=== PATIENT | male | born 1995 | race Caucasian/White ===

== ENCOUNTER 2018-03-16 15:11 | Emergency (ER) | payer BC ==
[2018-03-16] MEDS ORDERED: Fluorescein 0.6 MG Ophth Strip EYELF ONE (15:49)
[2018-03-16] MEDS ORDERED: Fluorescein 0.6 MG Ophth Strip ONE (15:50)
[2018-03-16] MEDS ORDERED: Diphtheria,Pertussis(Acell),Tetanus Vaccine 0.5 ML SDV IM ONE (15:57)
--- NOTE | 2018-03-16 16:03 | EDM.PDOC ---
ED HPI GENERAL MEDICAL PROBLEM - General Chief Complaint: Eye Problems Stated Complaint: EYE INJURY Time Seen by Provider: 03/16/18 15:37 Source of Information: Reports: Patient, Family History Limitations: Reports: No Limitations - History of Present Illness INITIAL COMMENTS - FREE TEXT/NARRATIVE: 22-year-old male presents for evaluation amd treatment of injury to the left eye. Injury occurred prior to arrival in the ER. Patient was running to catch a softball when he ran into a chain linked fence. He is complaining of pain and a laceration to the left eye, superior lid. He has also appreciated swelling. Reports no foreign body sensation. No vision changes. Did not pass out. No treatment prior to arrival in the ER. Unsure of last tetanus. Onset: Today - Related Data Allergies Allergy/AdvReac Type Severity Reaction Status Date / Time No Known Allergies Allergy Verified 03/16/18 15:26 Home Meds: Home Meds Erythromycin Base [Erythromycin 0.5% Ophth Oint] 1 applic OP Q8HR #1 tube [Rx] Past Medical History Neurological History: Reports: Concussion Social & Family History - Tobacco Use Smoking Status *Q: Never Smoker Second Hand Smoke Exposure: No - Caffeine Use Caffeine Use: Reports: Coffee - Recreational Drug Use Recreational Drug Use: No ED ROS GENERAL - Review of Systems Review Of Systems: See Below HEENT: Denies: Eye Pain, Glasses, Vision Change Neurological: Denies: Syncope ED EXAM GENERAL W FULL EYE - Physical Exam Exam: See Below Exam Limited By: No Limitations General Appearance: Alert, WD/WN, No Apparent Distress Eye Exam: Left Eye: Periorbital Changes (swelling to the upper and lower lids; 2 lacerations to the left upper lid more medial laceration is approximately 1.5cm in length, linear, well approximated subcutaneous; second laceration is approximately 0.75cm in length, flap shapped, superficial), Bilateral Eye: EOMI , Normal Inspection, PERRL Eyelids: Right: Normal Appearance, Left: Edema, Ecchymosis Conjunctiva & Sclera: Bilateral: Normal Appearance Cornea Exam: Left: Corneal Abrasion (5 o'clock), Examined with Flourescein Extraocular Movements: Bilateral: Intact Pupils: Normal Accommodation Pupillary Size: Bilateral: 4 mm Pupillary Reaction: Bilateral: Brisk Anterior Chamber: Bilateral: Normal Appearance Ears: Normal External Exam Nose: Normal Inspection Throat/Mouth: Normal Inspection, Normal Voice, No Airway Compromise Respiratory/Chest: No Respiratory Distress, Lungs Clear, Normal Breath Sounds Cardiovascular: Normal Peripheral Pulses, Regular Rate, Rhythm, No Murmur Neurological: Alert, Oriented, Normal Cognition, Normal Gait Psychiatric: Normal Affect, Normal Mood Skin Exam: Warm, Dry, Normal Color, Ecchymosis (left eye), Wound/Incision (left superior eye lid) Course - Vital Signs Last Recorded V/S: Last Vital Signs Temp 98.3 F 03/16/18 15:29 Pulse 52 L 03/16/18 15:29 Resp 20 03/16/18 15:29 BP 138/76 03/16/18 15:29 Pulse Ox 100 03/16/18 15:29 - Orders/Labs/Meds Meds: Medications Discontinued Medications Generic Name Dose Route Start Last Admin Trade Name Freq PRN Reason Stop Dose Admin Diphtheria/Tetanus/Acell Pertussis 0.5 ml 03/16/18 15:57 03/16/18 16:16 Adacel IM 03/16/18 15:58 0.5 ml .ONCE ONE Administration Fluorescein Sodium 0.6 mg 03/16/18 15:49 03/16/18 16:00 Ful-Justine EYELF 03/16/18 15:50 0.6 mg ONETIME ONE Administration Fluorescein Sodium Confirm 03/16/18 15:50 03/16/18 16:10 Ful-Justine Administered 03/16/18 15:51 Not Given Dose 0.6 mg .ROUTE .STK-MED ONE Departure - Departure Time of Disposition: 16:16 Disposition: Home, Self-Care 01 Condition: Fair Clinical Impression: Corneal abrasion, left, Laceration - Discharge Information *PRESCRIPTION DRUG MONITORING PROGRAM REVIEWED*: No *COPY OF PRESCRIPTION DRUG MONITORING REPORT IN PATIENT LAILA: No Prescriptions: Erythromycin Base [Erythromycin 0.5% Ophth Oint] 1 applic OP Q8HR #1 tube Instructions: Corneal Abrasion, [place], Laceration Care, Adult, Easy-to- Read Referrals: Roselyn Sandhu, [employer] [Primary Care Provider] - Forms: ED Department Discharge Additional Instructions: Wash the lacerations with gentle soap and water twice a day. May apply a topical antibacterial ointment such as bacitracin to the wound twice a day. Monitor the wounds for signs of infection such as increased redness or pus. Present to the clinic or the ED should these symptoms present. Erythromycin 1cm ribbon to the left lower lid tid x 7 days. Follow-up with an eye doctor this week. Follow-up with your PCP as needed. Please return to the ER should your symptoms change or worsen.
== END 2018-03-16 16:35 | disposition home or self-care (01) ==
LOC: JD.ED 15:11
DX: S01.112A Laceration without foreign body of left eyelid and periocular area, initial encounter (principal); W26.8XXA Contact with other sharp object(s), not elsewhere classified, initial encounter; Y93.64 Activity, baseball
CPT/HCPCS: 90471; 90715; 99283; 99283-25

== ENCOUNTER → 2023-09-01 | Day surgery (SDC) | payer BC ==
[~2023-09-01] MED LIST: HYDROmorphone 0.5 MG/0.5 ML Syringe IVPUSH PRN; HYDROmorphone 0.5 MG/0.5 ML Syringe ONE; Ketorolac 30 MG/ML SDV ONE; Lactated Ringers 1,000 ML ONE; Lidocaine 1% 6 ML ONE; Metoclopramide 10 MG/2 ML SDV ONE; Midazolam 1 MG/ML 2 ML SDV ONE; Ondansetron 4 MG/2 ML SDV IVPUSH PRN; Ondansetron 4 MG/2 ML SDV ONE; Propofol 200 MG/20 ML SDV ONE; Rocuronium 50 MG/5 ML Vial ONE; Sodium Chloride 0.9% 10 ML Syringe FLUSH PRN; Succinylcholine 200 MG/10 ML MDV ONE; Sugammadex Sodium 200 MG/2 ML VIAL IV ONE; ceFAZolin 2 GM in Sodium Chloride 0.9% 50 ML IV ONE; fentaNYL 100 MCG/2 ML SDV IVPUSH PRN; fentaNYL 250 MCG/5 ML SDV ONE
[2023-09-01] MEDS: Ondansetron 4 MG/2 ML SDV IVPUSH ONE ×2 (20:12→21:09)
[2023-09-01] MEDS: Sodium Chloride 0.9% 1,000 ML IV STA (20:12)
[2023-09-01 20:13] LABS: BASOPHILS ABSOLUTE AUTO 0.1 K/mm3 (0.0-0.2); BASOPHILS PERCENT AUTO 0.4 % (0.0-1.0); EOSINOPHILS ABSOLUTE AUTO 0.2 K/mm3 (0.0-0.4); EOSINOPHILS PERCENT AUTO 1.1 % (0.0-6.0); HEMATOCRIT 44.9 % (42.0-52.0); HEMOGLOBIN 15.6 gm/dl (14.0-18.0); IMMATURE GRAN ABSOLUTE AUTO 0.05 K/mm3 (0.00-0.05); IMMATURE GRAN PERCENT AUTO 0.3 % (0.0-0.4); LYMPHOCYTES ABSOLUTE AUTO 1.3 K/mm3 (1.0-4.8); MEAN CORPUSCULAR HEMOGLOBIN 33.1 pg (28.0-32.0); MEAN CORPUSCULAR HGB CONC 34.7 g/dl (32.0-36.0); MEAN CORPUSCULAR VOLUME 95.3 fl (83.0-99.0); MEAN PLATELET VOLUME 9.1 fl (9.4-12.4); MONOCYTES ABSOLUTE AUTO 0.8 K/mm3 (0.0-0.8); MONOCYTES PERCENT AUTO 5.1 % (0.0-8.0); NEUTROPHILS ABSOLUTE AUTO 13.4 K/mm3 (1.8-7.7); NEUTROPHILS PERCENT AUTO 85.1 % (41.0-71.0); PLATELET COUNT,PLT 266 K/mm3 (150-400); RED BLOOD CELL COUNT 4.71 M/mm3 (4.52-5.90); WHITE BLOOD CELL COUNT,WBC 15.68 K/mm3 (3.9-11.3)
[2023-09-01] MEDS: Sodium Chloride 0.9% 10 ML Syringe FLUSH ONE (20:28)
[2023-09-01] MEDS: Iopamidol 612 MG/ML 100 ML Bottle IVPUSH ONE (20:28)
[2023-09-01 20:39] LABS: A/G RATIO 1.2 (1-2); ALANINE AMINOTRANSFERASE,ALT 18 U/L (16-63); ALBUMIN 4.4 g/dl (3.4-5.0); ALKALINE PHOSPHATASE 63 U/L (46-116); ANION GAP 9.5 (5-15); ASPARTATE AMNIOTRANSFERASE,AST 12 U/L (15-37); BILIRUBIN TOTAL 0.7 mg/dL (0.2-1.0); BLOOD UREA NITROGEN,BUN 11 mg/dL (7-18); BUN/CREATININE RATIO 8.5 (14-18); C-REACTIVE PROTEIN <0.2 mg/dL (<1.0); CALCIUM 9.2 mg/dL (8.5-10.1); CARBON DIOXIDE,CO2 31 mEq/L (21-32); CHLORIDE,CL 103 mEq/L (98-107); CREATININE 1.3 mg/dL (0.7-1.3); EST CRCL DRUG DOSING (CG) 80.51 mL/min; ESTIMATED GFR 78 mL/min (>60); GLUCOSE RANDOM 120 mg/dL (70-99); LIPASE 29 U/L (16-77); POTASSIUM,K 4.5 mEq/L (3.5-5.1); SODIUM,NA 139 mEq/L (136-145)
[2023-09-01] MEDS: Piperacillin/Tazobactam 4.5 GM in Sodium Chloride 0.9% 100 ML IV ONE (21:10)
[2023-09-01 21:42] LABS: APPEARANCE,URINE CLEAR (Clear); BILIRUBIN,URINE NEGATIVE (Negative); COLOR,URINE LIGHT YELLOW (Yellow); GLUCOSE,URINE NEGATIVE (Negative); KETONES,URINE NEGATIVE (Negative); LEUKOCYTE ESTERASE,URINE NEGATIVE (Negative); NITRITE,URINE NEGATIVE (Negative); OCCULT BLOOD,URINE NEGATIVE (Negative); PH,URINE 7.5 (5.0-8.0); PROTEIN,URINE NEGATIVE (Negative); UROBILINOGEN,URINE 0.2 (0.2-1.0)
[2023-09-01 21:49] LABS: RBC,URINE 0-5 /hpf (0-5); SQUAMOUS EPITHELIAL CELLS,UR 0-5 /hpf (0-5); WBC,URINE 0-5 /hpf (0-5)
[2023-09-01 21:50] LABS: BACTERIA,URINE FEW /hpf (FEW); MUCUS,URINE FEW /hpf (FEW)
[2023-09-01] MEDS: Acetaminophen 325 MG Tab PO STA (22:04)
[2023-09-01] MEDS: Lidocaine 1% 30 ML SDV ONE (23:06)
[2023-09-01] MEDS: EPINEPHrine 1 MG/ML SDV ONE (23:06)
[2023-09-01] MEDS: Bupivacaine 0.5% 30 ML SDV ONE (23:06)
== END | disposition home or self-care (01) ==
LOC: JD.ED 18:44 → JD.SDS 22:00
PROVIDERS: ATTEND Student in an Organized Health Care Education/Training Program
DX: K35.33 Acute appendicitis with perforation, localized peritonitis, and gangrene, with abscess (principal); D72.829 Elevated white blood cell count, unspecified; F17.290 Nicotine dependence, other tobacco product, uncomplicated
CPT/HCPCS: 36415; 44970; 74177; 80053; 81001; 83690; 85025; 86140; A9270; J0171; J0330; J0665; J1170; J1885; J2250; J2405; J2543; J2704; J2765; J3010; J3490; J7030; J7120; Q9967; 00840; 99140; 99285

== ENCOUNTER 2024-01-17 20:12 | Emergency (ER) | payer BC ==
[2024-01-17] MEDS: Diphtheria,Pertussis(Acell),Tetanus Vaccine 0.5 ML Syringe IM ONE (20:52)
== END 2024-01-17 21:17 ==
LOC: JD.ED 20:12
DX: S91.312A Laceration without foreign body, left foot, initial encounter (principal); F17.210 Nicotine dependence, cigarettes, uncomplicated; Z90.49 Acquired absence of other specified parts of digestive tract; Z79.899 Other long term (current) drug therapy; Z23 Encounter for immunization; W22.8XXA Striking against or struck by other objects, initial encounter
CPT/HCPCS: 12002; 90471; 90715; 99282-25